=== PATIENT | male | born 1960 | race Caucasian/White ===

== ENCOUNTER → 2017-02-16 | Outpatient (CLI) | payer OTHER ==
--- NOTE | 2017-02-16 11:58 | RAD ---
Examination: Lumbar spine, five views History: Disc degeneration Comparison reference: None Findings: There is marked depression of the superior endplate of L3. Anterior osteophyte formation is noted at the L2-3 level. No bone destruction or significant displacement is noted. Impression: No acute process identified. Findings described suggest remote fracture of L3 with second reji degenerative changes. Reported By:
== END ==
LOC: RAD 10:32
PROVIDERS: ATTEND Nurse Practitioner Family
DX: M51.36 Other intervertebral disc degeneration, lumbar region (principal)
CPT/HCPCS: 72110